=== PATIENT | female | born 1960 | race Caucasian/White ===

== ENCOUNTER 2019-11-21 16:22 | Emergency (ER) | payer OTHER, SELFPAY ==
--- NOTE | ~2019-11-21 | US_ITS ---
EXAMINATION: US right upper quadrant DATE: 11/21/2019 18:31 INDICATION: Right upper quadrant tenderness TECHNIQUE: Multiple grayscale and Doppler ultrasound images of the abdomen were obtained. COMPARISON: None FINDINGS: The region of the pancreas is obscured by shadowing bowel gas. Visualized proximal inferior vena cava is normal. Liver has normal echogenicity and contour, with a smooth surface. No liver lesion identif ied. No intrahepatic biliary duct dilation suspected. Portal venous flow was seen in the hepatopetal, normal direction and has normal Doppler waveform. There are round shadowing calcifications in the re gion of the katherine hepatis possibly within a decompressed gallbladder which limits assessment. The com mon bile duct measures 2 mm in diameter. Sonographic Reyes sign was reported as positive by the sono grapher. IMPRESSION: 1. And shadowing calcifications in the region of the katherine hepatis likely representing gall stones wi thin a decompressed gallbladder with positive sonographic Reyes's sign. Typically the gallbladder wo uld be dilated in the setting of acute cholecystitis and this remains equivocal. Consider HIDA scan f or further evaluation. Reviewed, dictated and finalized at location A. IMPRESSION: 1. And shadowing calcifications in the region of the katherine hepatis likely repre senting gall stones within a decompressed gallbladder with positive sonographic Reyes's sign. Typically the gallbladder would be dilated in the setting of ac cody cholecystitis and this remains equivocal. Consider HIDA scan for further ev aluation.
[2019-11-21 16:34] VITALS: BP 131/86; PULSE 82; RESP 16; TEMP 36.3; O2SAT 100
[2019-11-21 16:52] LABS: Basophils Percent Auto 0.3 % (0.2-1.2); Eosinophils Absolute Auto 0.2 K/mm3 (0-0.3); Eosinophils Percent Auto 2.4 % (0-4.4); Hematocrit 44.6 % (37.0-47.0); Hemoglobin 14.7 g/dL (12.0-15.0); Immature Granulocyte Absolute 0.02 K/mm3 (0.00-0.031); Immature Granulocyte Percent A 0.3 % (0-0.5); Lymphocytes Absolute Auto 2.08 K/mm3 (0.9-3.2); Mean Corpuscular Hemoglobin 30.5 pg (26-34); Mean Corpuscular Volume 92.5 fl (80-100); Mean Platelet Volume 10.4 fl (7.4-10.4); Monocytes Absolute Auto 0.6 K/mm3 (0.1-0.6); Monocytes Percent Auto 7.5 % (2.6-8.5); Neutrophils Absolute Auto 4.6 K/mm3 (1.3-6.7); Neutrophils Percent Auto 61.5 % (45.5-73.1); Platelet Count Result 223 k/mm3 (150-375); Red Blood Count 4.82 M/mm3 (4.2-5.4); Red Cell Distribution Width 14.9 % (11.5-14.5); White Blood Count 7.4 K/mm3 (4.5-10.0)
[2019-11-21 16:58] LABS: Add Urine Microscopic? YES; Amorphous Sediment Urine Few; Appearance Urine Cloudy (Clear); Bacteria Urine Trace /hpf; Bilirubin Urine Negative (Negative); Blood Urine 1+ (Negative); Color Urine Amber (Yellow); Glucose Urine UA Negative (Negative); Ketones Urine Negative (Negative); Leukocyte Esterase Ur 3+ LEU/UL (Negative); Mucus Urine Rare /lpf; Nitrate Urine Negative (Negative); Protein Urine 1+ mg/dL (Negative); Squamous Epithelial Cell Urine Many /hpf (Few); WBC Urine 21-30 /hpf
[2019-11-21 16:59] LABS: Specific Grav Ur 1.031 (1.001-1.035)
[2019-11-21 17:00] LABS: Alanine Aminotransferase 31 U/L (4-35); Albumin Level 4.4 g/dL (3.5-5.1); Alkaline Phosphatase 75 U/L (38-126); Anion Gap 9 mmol/L (8-16); Aspartate Amino Transferase 34 U/L (14-36); Bilirubin,Total 0.5 mg/dL (0.2-1.3); Blood Urea Nitrogen 36 mg/dL (7-17); Calcium 9.9 mg/dL (8.4-10.2); Carbon Dioxide 28 mmol/L (22-30); Chloride 103 mmol/L (98-107); Estimated CRCL calculation 31 ml/min; Estimated Glomerular Filt Rate 42; Glucose 96 mg/dL (65-105); Lipase 63 U/L (23-300); Potassium 3.9 mmol/L (3.4-5.0); Sodium 140 mmol/L (137-145)
--- NOTE | 2019-11-21 18:08 | ED.ABDPAIN ---
HPI - Abdominal Pain General Chief Complaint: Abdominal Pain Stated Complaint: ABD PAIN Time Seen by Provider: 11/21/19 17:55 Source: patient Mode of arrival: ambulatory Limitations: no limitations History of Present Illness HPI narrative: This patient is a 58 year old female who presents for evaluation of right upper abdominal pain. Patient reports she developed right upper abdominal pain yesterday. This pain has been intermittent. She reports dull pain that radiates to her back. She denies pain currently. She denies nasuea, vomiting, fever or chills. She was evaluated by her PCP today who referred her to She denies pain worse with eating or exertion. MD elicited complaint: abdominal pain Related Data Home Medications Medication Instructions Recorded Confirmed calcium carbonate 600 mg(1,500 1 tablet PO DAILY 03/26/19 04/18/19 mg)-vitamin D3 800 unit chewable tablet multivitamin 1 tablet PO DAILY 03/26/19 04/18/19 Allergies Allergy/AdvReac Type Severity Reaction Status Date / Time No Known Allergies Allergy Verified 11/21/19 17:57 Review of Systems Review of Systems: All systems reviewed & are unremarkable except as noted in HPI and below Constitutional: Constitutional: Denies chills and Denies fever(s) Cardiovascular: Cardiovascular: Denies chest pain Respiratory: Respiratory: Denies cough and Denies dyspnea Gastrointestinal: Gastrointestinal: Reports abdominal pain, Denies diarrhea, Denies nausea and Denies vomiting Genitourinary: Genitourinary: Denies hematuria and Denies dysuria Musculoskeletal: Musculoskeletal: Reports back pain [facility] Past Medical History Medical History (Updated 11/21/19 @ 19:35 by Yudith Yin MD) Acute bronchitis COPD (chronic obstructive pulmonary disease) Pulmonary emphysema Surgical History Surgical History (Updated 03/26/19 @ 10:44 by Debbie Fields CMA) History of hysterectomy Social History Social History (Updated 03/26/19 @ 10:43 by Debbie Fields CMA) Smoking status: Current every day smoker Exam Const: General: no acute distress and alert Nutritional Appearance: thin Orientation/consciousness: patient oriented x3 Eyes: EOM: EOMs intact bilaterally Chest: Chest palpation & inspection: normal inspection of the chest Resp: Effort & Inspection: normal respiratory effort, no retractions and no use of accessory muscles Auscultation: clear to auscultation bilaterally Cardio: Rate: regular rate Rhythm: regular rhythm Heart sounds: no murmurs GI: GI Palp: Yes Soft to palpation, Yes Tenderness to palpation present (GI) (RUQ), No Guarding due to palpation present (GI), No Rigid due to palpation and No Hernia present Skin: General skin exam: normal color Rashes: no rashes Neuro: General: patient oriented x3 and moves all extremities Course Reevaluation(s) Reevaluation #1: Patient still denies any abdominal pain. I discussed with patient she may have gallstones. She will be discharged on low fat diet. Consultations Consultation #1: I discussed case with Dr. Miles who agrees patient can follow up as an outpatient. Date: 11/21/19 Time: 19:30 Vital Signs Vital signs: Vital Signs Temperature 97.4 F L 11/21/19 16:34 Pulse Rate 82 11/21/19 16:34 Respiratory Rate 16 11/21/19 16:34 Blood Pressure 131/86 11/21/19 16:34 Pulse Oximetry 100 11/21/19 16:34 Temperature 97.8 F 11/21/19 19:45 Pulse Rate 80 11/21/19 19:45 Respiratory Rate 18 11/21/19 19:45 Blood Pressure 128/80 11/21/19 19:45 Pulse Oximetry 99 11/21/19 19:45 MDM - Abdominal Pain Lab Data Attestation: I reviewed the patient's lab results. Result diagrams: 11/21/19 16:40 11/21/19 16:40 Labs: Lab Results 11/21/19 11/21/19 11/21/19 Range/Units 16:40 16:40 16:40 WBC 7.4 (4.5-10.0) K/mm3 RBC 4.82 (4.2-5.4) M/mm3 Hgb 14.7 (12.0-15.0) g/dL Hct 44.6 (37.0-47.0) % [facility]
[2019-11-21] MEDS: SODIUM CHLORIDE 0.9% IV 1,000 ML 999 ML IV CONT (18:44)
[2019-11-21 19:45] VITALS: BP 128/80; PULSE 80; RESP 18; TEMP 36.6; O2SAT 99
== END 2019-11-21 19:46 | disposition home or self-care (01) ==
PROVIDERS: Emergency Medicine; Emergency Provider General Practice; PCP Emergency Medicine
DX: N39.0 Urinary tract infection, site not specified (principal); R10.11 Right upper quadrant pain; J44.9 Chronic obstructive pulmonary disease, unspecified; Z86.711 Personal history of pulmonary embolism; F17.200 Nicotine dependence, unspecified, uncomplicated
CPT/HCPCS: 36415; 76705; 80053; 81001; 83690; 85025; 87086; 96360; 99284; J7030

== ENCOUNTER 2019-12-17 10:54 | Emergency (ER) | payer OTHER, SELFPAY ==
[2019-12-17] VITALS (21 sets, daily range): BP systolic 126–137; BP diastolic 85–93; PULSE 74–84; RESP 12–24; O2SAT 80–100
--- NOTE | ~2019-12-17 | XR_ITS ---
XR chest 2V DATE: 12/17/2019 12:08 INDICATION: Abnormal EKG. Hyperkalemia. TECHNIQUE: PA and lateral views COMPARISON: None FINDINGS: Cardiomegaly. There is bilateral hyperinflation suggesting COPD. There is mild infiltrate or atelectasis in the low er lung zones. No pleural effusion or pulmonary vascular congestion or pneumothorax. Osteopenia. IMPRESSION: Mild infiltrate or atelectasis in the lower lung zones Cardiomegaly Bilateral hyperinflation suggesting COPD Reviewed, dictated and finalized at location A.
--- NOTE | 2019-12-17 10:57 | ECG_ITS ---
Measurements Intervals [place] Rate: 89 P: 79 WV: 191 QRS: -69 QRSD: 181 T: 105 QT: 437 QTc: 532 Interpretive Statements SINUS RHYTHM POSSIBLE RIGHT ATRIAL ENLARGEMENT LEFT ATRIAL ENLARGEMENT LEFT AXIS DEVIATION LEFT BUNDLE BRANCH BLOCK BASELINE WANDER- II, III, V1-V6 ABNORMAL ECG Electronically Signed On 12-17-2019 11:55:20 CDT by Ramesh Schrader D.O.
[2019-12-17 12:04] LABS: Basophils Percent Auto 0.5 % (0.2-1.2); Eosinophils Absolute Auto 0.2 K/mm3 (0-0.3); Eosinophils Percent Auto 3.2 % (0-4.4); Hematocrit 47.5 % (37.0-47.0); Hemoglobin 15.4 g/dL (12.0-15.0); Immature Granulocyte Absolute 0.01 K/mm3 (0.00-0.031); Immature Granulocyte Percent A 0.2 % (0-0.5); Lymphocytes Absolute Auto 1.42 K/mm3 (0.9-3.2); Mean Corpuscular HGB Conc 32.4 g/dl (32-36); Mean Corpuscular Hemoglobin 30.6 pg (26-34); Mean Corpuscular Volume 94.4 fl (80-100); Mean Platelet Volume 9.7 fl (7.4-10.4); Monocytes Absolute Auto 0.3 K/mm3 (0.1-0.6); Monocytes Percent Auto 5.1 % (2.6-8.5); Neutrophils Absolute Auto 3.7 K/mm3 (1.3-6.7); Platelet Count Result 224 k/mm3 (150-375); Red Blood Count 5.03 M/mm3 (4.2-5.4); Red Cell Distribution Width 15.2 % (11.5-14.5); White Blood Count 5.7 K/mm3 (4.5-10.0)
[2019-12-17] MEDS: ASPIRIN 81 MG CHEWABLE TABLET 324 MG PO (12:11)
[2019-12-17 12:13] LABS: Prothrombin Time 12.4 Seconds (11.1-14.7)
[2019-12-17 12:14] LABS: Partial Thromboplastin Time 29.9 SECONDS (22.3-36.8)
[2019-12-17 12:15] LABS: Anion Gap 10 mmol/L (8-16); Blood Urea Nitrogen 29 mg/dL (7-17); Calcium 9.9 mg/dL (8.4-10.2); Carbon Dioxide 28 mmol/L (22-30); Chloride 103 mmol/L (98-107); Estimated CRCL calculation 39 ml/min; Estimated Glomerular Filt Rate 56; Glucose 127 mg/dL (65-105); Potassium 4.1 mmol/L (3.4-5.0); Sodium 141 mmol/L (137-145)
[2019-12-17 12:28] LABS: Troponin I 0.026 ng/mL (0.000-0.034)
--- NOTE | 2019-12-17 12:28 | ED.GENADULT ---
HPI - General Adult General Chief complaint: Arrhythmia/Palpitations Stated complaint: abnormal ekg per pcp Time Seen by Provider: 12/17/19 12:10 Source: patient Mode of arrival: ambulatory Limitations: no limitations History of Present Illness HPI narrative: Patient is a 59-year-old female sent by her doctor due to elevated potassium. Patient currently symptomatic at this time. She states that she has a history of cardiomyopathy and is due for cardiac cath tomorrow. She denies any chest pain, shortness of breath, abdominal pain, nausea vomiting diarrhea or fever. Patient states she feels fine and has no symptoms. Related Data Home Medications Medication Instructions Recorded Confirmed calcium carbonate 600 mg(1,500 1 tablet PO DAILY 03/26/19 12/03/19 mg)-vitamin D3 800 unit chewable tablet multivitamin 1 tablet PO DAILY 03/26/19 12/03/19 Allergies Allergy/AdvReac Type Severity Reaction Status Date / Time No Known Allergies Allergy Verified 12/03/19 09:17 Review of Systems Review of Systems: All systems reviewed & are unremarkable except as noted in HPI and below Constitutional: Constitutional: Denies body ache(s), Denies chills, Denies excessive sweating, Denies fatigue, Denies fever(s), Denies headache(s), Denies lethargy, Denies malaise, Denies weakness and Denies weight loss Eyes: Eyes: Denies blurry vision, Denies change in vision and Denies loss of vision ENT: Denies dizziness, Denies ear discharge, Denies headache(s), Denies lip swelling, Denies epistaxis, Denies nasal congestion, Denies neck pain, Denies throat swelling and Denies tongue swelling Cardiovascular: Cardiovascular: Denies chest pain, Denies chest pain at rest, Denies chest pain with activity, Denies diaphoresis, Denies rapid heart rate, Denies edema, Denies irregular heart rhythm, Denies lightheadedness, Denies palpitations, Denies dyspnea and Denies dyspnea on exertion Respiratory: Respiratory: Denies chest congestion, Denies cough, Denies hemoptysis, Denies dyspnea and Denies dyspnea on exertion Gastrointestinal: Gastrointestinal: Denies abdominal pain, Denies melena, Denies hematochezia, Denies diarrhea, Denies nausea, Denies vomiting and Denies hematemesis Musculoskeletal: Musculoskeletal: Denies abnormal gait, Denies deformity, Denies joint swelling, Denies limited range of motion, Denies neck pain and Denies numbness Neurologic: Denies Abnormal speech present, Denies abnormal gait, Denies confusion, Denies dizziness, Denies headache(s), Denies focal weakness, Denies loss of vision, Denies numbness, Denies Other visual disturbances, Denies Sensory deficit (Neuro) and Denies weakness Psychiatric: Psychiatric: Denies confusion, Denies depression, Denies auditory hallucinations, Denies homicidal ideation and Denies suicidal ideation Endocrine: Endocrine: Denies cold intolerance, Denies excessive sweating, Denies fatigue, Denies heat intolerance and Denies palpitations Hematologic/Lymphatic: Hematologic/Lymphatic: Denies easy bleeding and Denies easy bruising Allergic/Immunologic: Allergic/Immunologic: Denies lip swelling, Denies throat swelling and Denies tongue swelling [facility] Past Medical History Medical History Acute bronchitis COPD (chronic obstructive pulmonary disease) Pulmonary emphysema Surgical History Surgical History History of hysterectomy 2002 Social History Social History Smoking status: Current every day smoker Tobacco type: cigarettes Alcohol intake: current Substance use: unknown Additional occupation/education comments: [employer] Gender identity (if verbalized by the patient): Female Exam Const: General: cooperative, healthy appearing, comfortable, no acute distress, well developed, alert and awake; No confusion Lorenzo
--- NOTE | 2019-12-17 12:37 | PC.NURSE ---
patient back from radiology. resting on stretcher. ASA given.
--- NOTE | 2019-12-17 12:45 | PC.NURSE ---
resting on stretcher. alert. oriented. ice water given. has call light in reach.
--- NOTE | 2019-12-17 14:08 | PC.NURSE ---
patient ambulated to restroom. now back on stretcher. placed back on monitor. will discuss food with provider. call light in reach.
--- NOTE | 2019-12-17 14:22 | PC.NURSE ---
2nd trop drawn. sent to lab.
[2019-12-17 14:48] LABS: Troponin I 0.021 ng/mL (0.000-0.034)
== END 2019-12-17 16:13 | disposition home or self-care (01) ==
PROVIDERS: Emergency Medicine; Emergency Provider Emergency Medicine; PCP Emergency Medicine
DX: I42.9 Cardiomyopathy, unspecified (principal); I44.7 Left bundle-branch block, unspecified; J43.9 Emphysema, unspecified; F17.210 Nicotine dependence, cigarettes, uncomplicated
CPT/HCPCS: 36415; 71046; 80048; 84484; 85025; 85610; 85730; 93005; 99284; A9270

== ENCOUNTER 2020-03-20 10:36 | Outpatient (CLI) | payer OTHER, SELFPAY ==
--- NOTE | ~2020-03-20 | CT_ITS ---
EXAMINATION:CT lung screening DATE: 03/20/2020 10:57 INDICATION: Personal history of tobacco dependence. Current smoker with 49 pack year history. TECHNIQUE: Computed tomography (CT) of the chest was performed without intravenous contrast. Automate d exposure control and iterative reconstruction technique were employed. The dose-length product (DLP ) was 59.72 mGy-cm. COMPARISON: None. FINDINGS: There is mild scarring at the lung apices. There is a 4 mm nodule in right upper lobe. Ther e is mild bronchiectasis in right middle lobe. There is mild atelectasis in the inferior lungs. There is a 4 mm nodule in left upper lobe. No pleural effusion. Cardiomegaly is noted. No pericardial effu vanessa. There is mild pectus excavatum. IMPRESSION: 1. Lung-RADS category 2: Benign appearance or behavior. Continue annual screening with noncontrast lo w-dose chest CT in 12 months. Reviewed, dictated and finalized at location A. [facility] [employer] IMPRESSION: 1. Lung-RADS category 2: Benign appearance or behavior. Continue annual screeni ng with noncontrast low-dose chest CT in 12 months.
== END 2020-03-20 10:37 | disposition home or self-care (01) ==
PROVIDERS: PCP Emergency Medicine; Visit Provider Internal Medicine Pulmonary Disease
DX: Z12.2 Encounter for screening for malignant neoplasm of respiratory organs (principal); Z87.891 Personal history of nicotine dependence
CPT/HCPCS: 71271